=== PATIENT | male | born 1970 | race Caucasian/White ===

== ENCOUNTER 2017-05-29 10:04 | Emergency (ER) | payer OTHER ==
[~2017-05-29] VITALS: Ht 177.8 cm; Wt 80.0 kg
[2017-05-29 10:05] VITALS: BP 135/80
[2017-05-29] MEDS ORDERED: CHOL100015 PO (10:24)
[2017-05-29] MEDS ORDERED: LEVO112T4 PO (10:24)
== END 2017-05-29 11:46 | disposition home or self-care (01) ==
LOC: ED 10:26
DX: S92.024A Nondisplaced fracture of anterior process of right calcaneus, initial encounter for closed fracture (principal); W18.49XA Other slipping, tripping and stumbling without falling, initial encounter; X58.XXXA Exposure to other specified factors, initial encounter; Y93.89 Activity, other specified; Y92.092 Bedroom in other non-institutional residence as the place of occurrence of the external cause; Y99.9 Unspecified external cause status; E03.9 Hypothyroidism, unspecified; Z87.891 Personal history of nicotine dependence
CPT/HCPCS: 99284

== ENCOUNTER → 2017-10-25 | Outpatient (CLI) | payer OTHER ==
[~2017-10-25] MED LIST: CHOL100015 PO; LEVO112T4 PO
== END | disposition home or self-care (01) ==
LOC: CVU 07:18
PROVIDERS: ATTEND Internal Medicine
DX: R20.9 Unspecified disturbances of skin sensation (principal)
CPT/HCPCS: 93922

== ENCOUNTER → 2017-11-15 | Outpatient (CLI) | payer OTHER | END | disposition home or self-care (01) | LOC: RAD 16:29 | PROVIDERS: ATTEND Nurse Practitioner Family | DX: M54.5 Low back pain (principal) | CPT/HCPCS: 72148 ==

== ENCOUNTER 2018-12-16 11:00 | Emergency (ER) | payer OTHER ==
[~2018-12-16] VITALS: Ht 177.8 cm; Wt 80.0 kg
[2018-12-16 16:43] VITALS: BP 136/76
== END 2018-12-16 16:45 | disposition home or self-care (01) ==
LOC: ED 12:23
DX: H81.22 Vestibular neuronitis, left ear (principal); R42 Dizziness and giddiness; E03.9 Hypothyroidism, unspecified
CPT/HCPCS: 36415; 70450; 70496; 70498; 70551; 80053; 83735; 84443; 84481; 84484; 85025; 93005; 96361; 96374; 99284; J2060; J7030; Q9967

== ENCOUNTER 2020-04-08 10:26 | Emergency (ER) | payer OTHER ==
[~2020-04-08] VITALS: Ht 177.8 cm; Wt 76.0 kg
--- NOTE | 2020-04-08 10:57 | NUR ---
PT COMES IN C/O MIGRAINES, TREMORS X4 DAYS. STATES "WORSE THAN EVER BEFORE". STATES ABDOMINAL PAIN, NAUSEA, INABILITY TO KEEP FOOD DOWN. EKG COMPLETE. MONITORS CONNECTED. PROVIDER AT BEDSIDE. AT BEDSIDE. WARM BLANKETS PROVIDED.
--- NOTE | 2020-04-08 11:04 | NUR ---
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
[2020-04-08] MEDS ORDERED: KETOROLAC 30 MG/1 ML ONE (11:09)
[2020-04-08] MEDS ORDERED: ONDANSETRON 2MG/ML, 2ML ONE (11:09)
--- NOTE | 2020-04-08 11:24 | NUR ---
PT RESTING ON GURNEY. C/O 08/17 GOMES, ABD PAIN. ORDERED MEDICATION ADMINISTERED. WARM BLANKET PROVIDED. VSS. NAD
[2020-04-08] MEDS ORDERED: ONDANSETRON 2MG/ML, 2ML IVPush ONE (11:30)
[2020-04-08] MEDS ORDERED: SODIUM CHLORIDE 0.9% 1,000ML IVBOLUS ONE (11:30)
[2020-04-08] MEDS ORDERED: KETOROLAC 30 MG/1 ML IVPush ONE (11:30)
[2020-04-08 11:54] LABS: BASOPHILS % (AUTO) 1 % (0-1); EOSINOPHILS % (AUTO) 0 % (1-7); LYMPHOCYTES % (AUTO) 25 % (22-44); MEAN CORPUSCULAR HEMOGLOBIN 30.9 pg (27.5-34.5); MEAN CORPUSCULAR HGB CONC 34.8 g/dL (33.2-36.2); MEAN PLATELET VOLUME 8.5 fL (7.4-10.4); MONOCYTES % (AUTO) 14 % (2-9); NEUTROPHILS % (AUTO) 60 % (42-75); PLATELET COUNT 141 x10^3/uL (130-400); RED CELL DISTRIBUTION WIDTH 13.3 % (9.4-14.8)
[2020-04-08 11:55] LABS: MD NO
--- NOTE | 2020-04-08 12:04 | NUR ---
PT. C/O 4/10 GOMES FOLLOWING ADMINISTRATION OF TORADOL AND RESIDUAL NAUSEA FOLLOWING ZOFRAN. WILL CONTINUE TO MONITOR. RESTING ON GURNEY. AT BEDSIDE. UA COLLECTED. CXR, BLOOD CULTURES AND LABS COMPLETE. AT BEDSIDE. STATES NO NEEDS AT THIS TIME
[2020-04-08 12:06] LABS: ALBUMIN 4.1 g/dL (3.4-5.0); ANION GAP 9 mmol/L (5-15); CALCIUM 8.7 mg/dL (8.5-10.1); CHLORIDE 104 mmol/L (98-107)
[2020-04-08 12:08] LABS: CREATININE 1.59 mg/dL (0.7-1.3)
[2020-04-08 12:12] LABS: MICROSCOPIC NOT IND
[2020-04-08 12:57] VITALS: BP 119/72
== END 2020-04-08 13:20 | disposition home or self-care (01) ==
LOC: ED 13:05
DX: J12.9 Viral pneumonia, unspecified (principal); Z20.828 Contact with and (suspected) exposure to other viral communicable diseases; G43.909 Migraine, unspecified, not intractable, without status migrainosus; R11.2 Nausea with vomiting, unspecified
CPT/HCPCS: 71045; 80048; 81003; 82040; 83605; 84145; 85025; 87040; 87635; 93005; 96374; 96375; 99285; J1885; J2405; J7030; 96361

== ENCOUNTER 2020-04-10 06:07 | Emergency (ER) | payer OTHER ==
[~2020-04-10] VITALS: Ht 177.8 cm; Wt 73.0 kg
--- NOTE | 2020-04-10 06:21 | NUR ---
pt bib remsa to room 40. complaining of chest pain when he breaths deep. states he was diagnosed with viral pneumonia recently.
[2020-04-10] MEDS ORDERED: ONDANSETRON 2MG/ML, 2ML IVPush ONE (06:30)
[2020-04-10] MEDS ORDERED: SODIUM CHLORIDE FLUSH 10ML SYR IVF ONE (06:30)
[2020-04-10] MEDS ORDERED: SODIUM CHLORIDE 0.9% 1,000ML IVBOLUS ONE (06:30)
[2020-04-10] MEDS ORDERED: ASPIRIN 81 MG TABLET CHEW PO ONE (06:30)
[2020-04-10] MEDS ORDERED: KETOROLAC 30 MG/1 ML IVPush ONE (06:30)
--- NOTE | 2020-04-10 06:38 | NUR ---
md sharath anderson pt. orders received. pt sleeping. resting, on cr monitor
[2020-04-10] MEDS ORDERED: ONDANSETRON 2MG/ML, 2ML ONE (06:40)
[2020-04-10] MEDS ORDERED: KETOROLAC 30 MG/1 ML ONE (06:40)
[2020-04-10] MEDS ORDERED: ASPIRIN 81 MG TABLET CHEW ONE (06:42)
--- NOTE | 2020-04-10 06:47 | NUR ---
pt a&o x4, calm and resting. on cr monitor. meds given, ivf 1L NS started to run over an hour. iv site intact, no swelling, no redness. flowing well. lab to bedside to draw labs.
--- NOTE | 2020-04-10 07:05 | NUR ---
report and care given to dayshift RN without incident. pt resting comfortably, on cr monitor.
--- NOTE | 2020-04-10 07:05 | NUR ---
assumed care of pt. report from Mika RN. pt here for SOB and feeling weak. per report, pt awaiting test results. no family at bedside
--- NOTE | 2020-04-10 07:30 | NUR ---
CXR has been to bedside. Dr. Aranda to bedside for recheck. RA trial initiated per MD order
[2020-04-10 07:34] LABS: BASOPHILS % (AUTO) 0 % (0-1); EOSINOPHILS % (AUTO) 0 % (1-7); LYMPHOCYTES % (AUTO) 13 % (22-44); MEAN CORPUSCULAR HEMOGLOBIN 30.9 pg (27.5-34.5); MONOCYTES % (AUTO) 12 % (2-9); NEUTROPHILS % (AUTO) 75 % (42-75); PLATELET COUNT 121 x10^3/uL (130-400); RED BLOOD COUNT 5.02 x10^6/uL (4.38-5.82); RED CELL DISTRIBUTION WIDTH 13.2 % (9.4-14.8)
[2020-04-10 07:45] LABS: CHLORIDE 104 mmol/L (98-107)
--- NOTE | 2020-04-10 07:50 | NUR ---
pt RA O2 sat at 96%. Dr Aranda notified
[2020-04-10 07:55] LABS: ALANINE AMINOTRANSFERASE 26 U/L (12-78); ALKALINE PHOSPHATASE 55 U/L (45-117); ANION GAP 10 mmol/L (5-15); BILIRUBIN,TOTAL 0.6 mg/dL (0.2-1.0); CALCIUM 8.7 mg/dL (8.5-10.1); CREATININE 1.29 mg/dL (0.7-1.3); MD NO; TOTAL PROTEIN 7.8 g/dL (6.4-8.2); TROPONIN I < 0.015 ng/mL (0.000-0.045)
--- NOTE | 2020-04-10 08:00 | NUR ---
pt is ozing intermittently. no resp. distress. pt is still on RA. no apparent resp distress
--- NOTE | 2020-04-10 09:30 | NUR ---
pt to be D/C. pt is resting on [employer] on cell phone
--- NOTE | 2020-04-10 10:15 | NUR ---
have attempted to retrieve pt keys from SO but she has not given them. pt notified. offered pt taxi voucher for safe D/C, pt has declined. pt has asked that this RN step out of his room. booster assembler Angela and Dental Insurance Coordinator Mary notified
[2020-04-10 10:22] VITALS: BP 106/67
--- NOTE | 2020-04-10 10:39 | NUR ---
this pt has been escorted out of department by security. ambulated out of department without assistance. no apparent distress
== END 2020-04-10 10:41 | disposition home or self-care (01) ==
LOC: ED 06:13
DX: J12.9 Viral pneumonia, unspecified (principal); R50.9 Fever, unspecified; R05 Cough; R06.02 Shortness of breath; R06.00 Dyspnea, unspecified; R11.0 Nausea; M79.10 Myalgia, unspecified site
CPT/HCPCS: 36415; 71045; 80053; 83605; 84145; 84484; 85025; 87040; 93005; 96361; 96374; 96375; 99285; J1885; J2405; J7030